=== PATIENT | male | born 1985 | race Caucasian/White ===

== ENCOUNTER 2018-12-28 08:47 | Emergency (ER) | payer OTHER ==
[2018-12-28] MEDS ORDERED: Tetan/Diph/Pertus SYR(Tdap)* 0.5 ML SYR(BOOSTRIX) use SYR IM ONE (10:20)
[2018-12-28 10:38] VITALS: BP 115/71
--- NOTE | 2018-12-28 10:49 | ED ---
Laceration/Wound HPI - HPI Summary HPI Summary: Patient is a 33-year-old male presenting to the ED with a left-sided distal tip laceration of the thumb. This is semi-lunar. Superficial. Bleeding is controlled on arrival. Pain is rated a 2/10. Constant throbbing. Denies any numbness tingling. Denies any mobility issues. Patient denies any anticoagulation medications and he is otherwise healthy. Tetanus is not up-to- date. - History of Current Complaint Stated Complaint: FINGER LAC BY BREAD KNIFE PER PT Time Seen by Provider: 12/28/18 08:57 Hx Obtained From: Patient Mechanism of Injury: Sharp/Blunt Trauma Onset/Duration: Sudden Onset Aggravating: Movement Alleviating: Compression Timing: Constant Onset Severity: Mild Pain Intensity: 2 Pain Scale Used: 0-10 Numeric Associated Signs & Symptoms: Negative - Allergy/Home Medications Allergies/Adverse Reactions: Allergies Allergy/AdvReac Type Severity Reaction Status Date / Time No Known Allergies Allergy Verified 12/28/18 08:56 Home Medications: Home Medications NK [No Home Medications Reported] 12/28/18 [History Confirmed 12/28/18] PMH/Surg Hx/FS Hx/Imm Hx Previously Healthy: Yes - Immunization History Hx Pertussis Vaccination: No Immunizations Up to Date: Yes Infectious Disease History: No Infectious Disease History: Denies: Traveled Outside the [place] in Last 30 Days - Social History Occupation: Employed Full-time Lives: With Family Alcohol Use: Occasionally Hx Substance Use: No Substance Use Type: Reports: None Hx Tobacco Use: No Smoking Status (MU): Never Smoked Tobacco Review of Systems Constitutional: Negative Negative: Chills, Fatigue, Skin Diaphoresis Negative: Palpitations, Chest Pain Negative: Shortness Of Breath, Cough Negative: Myalgia Positive: Other - laceration - L thumb Neurological: Negative All Other Systems Reviewed And Are Negative: Yes Physical Exam Triage Information Reviewed: Yes Vital Signs On Initial Exam: Initial Vitals Temp Pulse Resp BP Pulse Ox 97.4 F 57 18 113/73 100 12/28/18 08:55 12/28/18 08:55 12/28/18 08:55 12/28/18 08:55 12/28/18 08:55 Vital Signs Reviewed: Yes Appearance: Positive: Well-Appearing, Well-Nourished Skin: Positive: Warm, Skin Color Reflects Adequate Perfusion, Other - left thumb laceration - distal tip Head/Face: Positive: Normal Head/Face Inspection Eyes: Positive: EOMI, Conjunctiva Clear Neck: Positive: Supple, No Lymphadenopathy Respiratory/Lung Sounds: Positive: Clear to Auscultation, Breath Sounds Present Cardiovascular: Positive: Normal, RRR, Pulses are Symmetrical in both Upper and Lower Extremities Musculoskeletal: Positive: Strength/ROM Intact Neurological: Positive: Speech Normal Psychiatric: Positive: Affect/Mood Appropriate Diagnostics - Vital Signs Vital Signs Temp Pulse Resp BP Pulse Ox 12/28/18 10:37 98.3 F 57 16 115/71 99 12/28/18 08:55 97.4 F 57 18 113/73 100 - Laboratory Lab Statement: Any lab studies that have been ordered have been reviewed, and results considered in the medical decision making process. Laceration Repair Course/Dx - Course Course Of Treatment: During course treatment the patient is evaluated for a left semi-lunar superficial laceration of the distal tip of the thumb. Bleeding is well controlled. 2 layers of adhesive applied with good effect. Gauze wrapped and pressure dressing applied. Pressure dressing will be removed in approximately 2-3 hours. Dressing will remain 24 hours. Patient understands return precautions. Nothing further at this time. Tetanus is updated. - Differential Dx Differental Diagnoses: Other - avulsion - Clinical Impression Provider Diagnoses: Laceration Discharge - Sign-Out/Discharge Documenting (check all that apply): Patient Departure Patient Received Moderate/Deep Sedation with Procedure: No - Discharge Plan Condition: Stable Disposition: HOME Patient Education Materials: Skin Adhesive Care (ED) Referrals: No Primary Care Phys,NOPCP [Primary Care Provider] - Additional Instructions: Keep the pressure dressing applied x 24 hours The glue will naturally flake off If you develop worsening bleeding, return to the ED - Billing Disposition and Condition Condition: STABLE Disposition: Home
== END 2018-12-28 10:37 | disposition home or self-care (01) ==
LOC: EDSEX 08:47 → ED 08:47
DX: S61.012A Laceration without foreign body of left thumb without damage to nail, initial encounter (principal); W26.9XXA Contact with unspecified sharp object(s), initial encounter; Y92.9 Unspecified place or not applicable; Z23 Encounter for immunization
CPT/HCPCS: 12001; 90471; 90715; 99282